=== PATIENT | female | born 1975 | race Two or more races ===

== ENCOUNTER 2023-06-25 11:32 | Outpatient (CLI) | payer OTHER | END 2023-06-25 11:42 | disposition home or self-care (01) | LOC: PPH VACUNA 11:32 | PROVIDERS: ATTEND Emergency Medicine Pediatric Emergency Medicine | DX: Z23 Encounter for immunization (principal) ==

== ENCOUNTER 2023-06-26 03:05 | Emergency (ER) | payer OTHER ==
[~2023-06-26] VITALS: Ht 157.5 cm; Wt 72.6 kg
[2023-06-26 05:42] LABS: HEMATOCRIT 38.4 % (36.0-45.00); HEMOGLOBIN 12.3 g/dL (12.0-15.00); MEAN CELL VOLUME 82.1 fL (80.00-100.00); MEAN CORPUSCULAR HEMOGLOBIN 26.3 pg (27.00-32.0); PLATELET COUNT 196 K/uL (150-450); RED BLOOD COUNT 4.68 M/uL (4.00-6.00); RED CELL DISTRIBUTION WIDTH 14.3 % (11.5-14.5)
== END 2023-06-26 06:18 | disposition home or self-care (01) ==
LOC: ER
DX: R53.81 Other malaise (principal); J06.9 Acute upper respiratory infection, unspecified; Z20.822 Contact with and (suspected) exposure to COVID-19

== ENCOUNTER 2023-07-19 10:12 | Outpatient (CLI) | payer OTHER | END 2023-07-19 10:25 | disposition home or self-care (01) | LOC: MAMO-SONO 10:12 | PROVIDERS: ATTEND Internal Medicine Hematology & Oncology | DX: Z12.31 Encounter for screening mammogram for malignant neoplasm of breast (principal); N63.0 Unspecified lump in unspecified breast; N64.4 Mastodynia; E04.2 Nontoxic multinodular goiter ==

== ENCOUNTER → 2023-08-30 06:20 | Outpatient (CLI) | payer OTHER ==
[2023-08-30 08:03] LABS: HEMOGLOBIN 12.8 g/dL (12.0-15.00); MEAN CELL VOLUME 82.5 fL (80.00-100.00); MEAN CORPUSCULAR HEMOGLOBIN 27.1 pg (27.00-32.0); MEAN CORPUSCULAR HGB CONC 32.9 g/dl (32.0-36.0); PLATELET COUNT 215 K/uL (150-450); RED BLOOD COUNT 4.72 M/uL (4.00-6.00); RED CELL DISTRIBUTION WIDTH 14.5 % (11.5-14.5)
[2023-08-30 08:27] LABS: COL EPI 89 SECONDS (82-175)
[2023-08-30 08:39] LABS: INR 0.97; PARTIAL THROMBOPLASTIN TIME 29.1 SECONDS (22.0-34.0); PROTHROMBIN TIME 10.2 SECONDS (9.0-11.5)
[2023-08-30 08:53] LABS: % SATURACION 17.2 % (15-50); ALBUMIN 3.3 gm/dL (3.4-5.0); BILIRUBIN TOTAL 0.43 mg/dL (0.3-1.2); CALCIUM 8.9 mg/dL (8.5-10.1); CREATININE SERUM 0.74 mg/dL (0.55-1.02); FERRITIN 34.3 NG/ML (8-252); GFR 83.41; GLOBULINA 3.7 G/DL (2.4-3.5); POTASSIUM 4.24 mEq/L (3.5-5.1); T4 FREE 0.94 NG/ML (0.76-1.46); TSH 1.79 uIU/mL (0.358-3.74)
[2023-08-30 12:57] LABS: FOLIC ACID 8.95 ng/ml (4.78-20)
[2023-08-31 13:17] LABS: MANUAL PLATELET COUNT 302
[2023-08-31 13:19] LABS: PLATELET ESTIMATE NORMAL (NORMAL)
[2023-09-01 16:11] LABS: PARIETAL CELL ANTIBODIES 2.5 Units (0.0-20.0)
== END | disposition home or self-care (01) ==
LOC: LAB 06:20
PROVIDERS: ATTEND Internal Medicine Hematology & Oncology
DX: D50.8 Other iron deficiency anemias (principal); R79.9 Abnormal finding of blood chemistry, unspecified; I10 Essential (primary) hypertension; R74.02 Elevation of levels of lactic acid dehydrogenase [LDH]; K76.89 Other specified diseases of liver; D51.1 Vitamin B12 deficiency anemia due to selective vitamin B12 malabsorption with proteinuria; D51.0 Vitamin B12 deficiency anemia due to intrinsic factor deficiency; E03.8 Other specified hypothyroidism; E06.3 Autoimmune thyroiditis; D68.8 Other specified coagulation defects; D56.1 Beta thalassemia; D69.1 Qualitative platelet defects; E78.2 Mixed hyperlipidemia; M79.81 Nontraumatic hematoma of soft tissue

== ENCOUNTER → 2023-09-02 08:02 | Outpatient (CLI) | payer OTHER ==
[2023-09-02 11:11] LABS: ob NEGATIVE (NEGATIVE)
== END | disposition home or self-care (01) ==
LOC: LAB 08:02
PROVIDERS: ATTEND Internal Medicine Hematology & Oncology
DX: D68.8 Other specified coagulation defects (principal); D50.8 Other iron deficiency anemias; R97.8 Other abnormal tumor markers; R19.5 Other fecal abnormalities

== ENCOUNTER → 2023-10-25 | Emergency (ER) | payer OTHER | END | disposition left against medical advice (07) | LOC: ER 16:47 | DX: Z53.21 Procedure and treatment not carried out due to patient leaving prior to being seen by health care provider (principal) ==

== ENCOUNTER 2024-03-22 09:10 | Emergency (ER) | payer OTHER ==
[~2024-03-22] VITALS: Ht 157.5 cm; Wt 124.7 kg
[~2024-03-22 09:10] MED LIST: CRESTOR20 MG PO; MICARDIS20 MG PO; ROSUVASTATIN CA20 MG PO; TELMISARTAN-HC1 EACH PO; TOPROL XL25 M1 PO; TOPROL XL25 MG PO
[2024-03-22] MEDS ORDERED: LEVALBUTEROL HCL 0.63 MG/3 ML SOLUTION IH ONE (10:15)
[2024-03-22] MEDS ORDERED: BENZONATATE 100 MG CAPSULE PO ONE (10:15)
[2024-03-22] MEDS ORDERED: CEFTRIAXONE SODIUM 2,000 MG VIAL IM ONE (10:15)
[2024-03-22 11:53] LABS: HEMATOCRIT 39.3 % (36.0-45.00); HEMOGLOBIN 13.1 g/dL (12.0-15.00); MEAN CELL VOLUME 82.6 fL (80.00-100.00); MEAN CORPUSCULAR HEMOGLOBIN 27.5 pg (27.00-32.0); MEAN CORPUSCULAR HGB CONC 33.3 g/dl (32.0-36.0); PLATELET COUNT 202 K/uL (150-450); RED BLOOD COUNT 4.76 M/uL (4.00-6.00)
== END 2024-03-22 14:59 | disposition home or self-care (01) ==
LOC: ER 09:10
PROVIDERS: General Practice
DX: R53.81 Other malaise (principal); J00 Acute nasopharyngitis [common cold]; Z20.822 Contact with and (suspected) exposure to COVID-19; I10 Essential (primary) hypertension

== ENCOUNTER 2024-03-30 12:34 | Outpatient (CLI) | payer OTHER | END 2024-03-30 12:44 | disposition home or self-care (01) | LOC: RAD 12:34 | PROVIDERS: ATTEND Specialist | DX: M17.10 Unilateral primary osteoarthritis, unspecified knee (principal) ==

== ENCOUNTER 2024-04-12 19:38 | Emergency (ER) | payer OTHER ==
[~2024-04-12] VITALS: Ht 157.5 cm; Wt 117.9 kg
[2024-04-12] MEDS ORDERED: FAMOTIDINE/PF 20 MG/2 ML VIAL IV STA (20:59)
[2024-04-12] MEDS ORDERED: 0.9 % SODIUM CHLORIDE 1,000 ML IV STA (20:59)
[2024-04-12] MEDS ORDERED: ONDANSETRON HCL 2 MG/ML VIAL IV STA (20:59)
[2024-04-12] MEDS ORDERED: LACTOBACILLUS ACIDOPHILUS 1 CAP CAP PO STA (21:07)
[2024-04-12] MEDS ORDERED: FAMOtidine 200mg/20ml VIAL ONE (21:11)
[2024-04-12] MEDS ORDERED: ONDANSETRON HCL 2 MG/ML VIAL ONE (21:12)
[2024-04-12 21:43] LABS: HEMATOCRIT 39.9 % (36.0-45.00); HEMOGLOBIN 14.2 g/dL (12.0-15.00); MEAN CELL VOLUME 83.7 fL (80.00-100.00); MEAN CORPUSCULAR HEMOGLOBIN 29.8 pg (27.00-32.0); MEAN CORPUSCULAR HGB CONC 35.6 g/dl (32.0-36.0); PLATELET COUNT 205 K/uL (150-450); RED BLOOD COUNT 4.77 M/uL (4.00-6.00); RED CELL DISTRIBUTION WIDTH 14.7 % (11.5-14.5)
[2024-04-12] MEDS ORDERED: LACTOBACILLUS ACIDOPHILUS 1 CAP CAP PO ONE (21:45)
[2024-04-12 22:10] LABS: ALBUMIN 3.7 gm/dL (3.4-5.0); BILIRUBIN TOTAL 0.84 mg/dL (0.3-1.2); CALCIUM 9.6 mg/dL (8.5-10.1); CREATININE SERUM 0.97 mg/dL (0.55-1.02); GFR 61.04; GLOBULINA 4.1 G/DL (2.4-3.5); POTASSIUM 4.31 mEq/L (3.5-5.1); TOTAL PROTEIN 7.8 gm/dL (6.4-8.2)
[2024-04-13] MEDS ORDERED: PEPCID40 MG PO (04:00)
[2024-04-13] MEDS ORDERED: INTESTINEX680 M2 PO (04:00)
[2024-04-13] MEDS ORDERED: ZOFRAN8 MG PO (04:00)
== END 2024-04-13 04:42 ==
LOC: ER 19:38
DX: K52.9 Noninfective gastroenteritis and colitis, unspecified (principal)

== ENCOUNTER 2024-04-25 11:11 | Outpatient (CLI) | payer OTHER ==
[~2024-04-25 11:11] MED LIST changes: +INTESTINEX680 M2 PO; +PEPCID40 MG PO; +ZOFRAN8 MG PO
== END 2024-04-25 11:12 | disposition home or self-care (01) ==
LOC: NUCLEAR 11:11
PROVIDERS: ATTEND Specialist
DX: I11.9 Hypertensive heart disease without heart failure (principal)

== ENCOUNTER → 2025-02-13 | Emergency (ER) | payer OTHER ==
[~2025-02-13] VITALS: Ht 157.5 cm; Wt 113.4 kg
[~2025-02-13] MED LIST changes: +KETOROLAC TROMETHAMINE 30 MG VIAL IM STA; +KETOROLAC TROMETHAMINE 30 MG VIAL ONE; +SILVER NITRATE APPLICATOR 1 PKT EACH TOP STA
== END | disposition left against medical advice (07) ==
LOC: ER 18:20
DX: T25.121A Burn of first degree of right foot, initial encounter (principal)